=== PATIENT | female | born 1995 | race Caucasian/White ===

== ENCOUNTER 2021-03-28 17:01 | Inpatient (IN) | payer OTHER ==
[~2021-03-28] VITALS: Ht 167.6 cm; Wt 59.0 kg
[2021-03-28 17:20] VITALS: BP 107/71
[2021-03-28 19:00] LABS: BASO % 0.3 % (0.0-1.0); EOS # 0.1 10*3/uL (0.0-0.4); EOS % 0.8 % (1.0-4.0); HEMATOCRIT 40.7 % (37.0-47.0); LYMPH # 1.7 10*3/uL (1.3-4.4); LYMPH % 17.8 % (27.0-41.0); MEAN CELL VOLUME 97.1 fl (81.0-99.0); MEAN CORPUSCULAR HGB 31.3 pg (27.0-31.0); MEAN CORPUSCULAR HGB CONC 32.2 g/dl (33.0-37.0); MEAN PLATELET VOLUME 10.5 fl (9.6-12.3); MONO # 0.9 10*3/uL (0.1-1.0); NEUT # 6.8 10*3/uL (2.3-7.9); NEUT % 71.9 % (47.0-73.0); PLATELET COUNT AUTOMATED 188 10*3/uL (130-400); RED BLOOD COUNT 4.19 10*6/uL (4.10-5.10); RED CELL DISTRI WIDTH 13.2 % (0-14.5); WHITE BLOOD COUNT 9.5 10*3/uL (4.8-10.8)
[2021-03-28 19:17] LABS: ALBUMIN 3.5 gm/dl (3.1-4.5); ALKALINE PHOSPHATASE 65 U/L (45-117); BUN 7 mg/dl (7-24); CHLORIDE 109 mmol/L (98-107); CREATININE 0.82 mg/dL (0.55-1.02); POTASSIUM 3.4 mmol/L (3.5-5.1); SGOT/AST 9 IU/L (3-35); SGPT/ALT 14 U/L (12-78); SODIUM 141 mmol/L (136-145); TOTAL PROTEIN 6.8 gm/dL (6.4-8.2)
[2021-03-28 21:23] VITALS: BP 104/66
== END 2021-03-29 01:39 | disposition left against medical advice (07) | DRG 82 ==
LOC: ED 17:01 → EDHOLD 21:54 → 4E 03-29 00:40 → EDHOLD 03-29 01:37
PROVIDERS: Physician Assistant; ADMIT Family Medicine; ATTEND Family Medicine
DX: H00.034 Abscess of left upper eyelid (principal); L03.211 Cellulitis of face; F60.3 Borderline personality disorder; F41.9 Anxiety disorder, unspecified; F32.9 Major depressive disorder, single episode, unspecified; F17.211 Nicotine dependence, cigarettes, in remission; E87.6 Hypokalemia; F19.10 Other psychoactive substance abuse, uncomplicated; Z53.29 Procedure and treatment not carried out because of patient's decision for other reasons; E87.8 Other disorders of electrolyte and fluid balance, not elsewhere classified; Z71.6 Tobacco abuse counseling; Z71.51 Drug abuse counseling and surveillance of drug abuser; Z98.51 Tubal ligation status; Z82.5 Family history of asthma and other chronic lower respiratory diseases

== ENCOUNTER 2022-01-09 19:52 | Emergency (ER) | payer OTHER ==
[~2022-01-09] VITALS: Ht 172.7 cm; Wt 59.0 kg
== END 2022-01-10 00:07 | disposition home or self-care (01) ==
LOC: ED 19:52
DX: S61.210A Laceration without foreign body of right index finger without damage to nail, initial encounter (principal); Z98.51 Tubal ligation status; W45.8XXA Other foreign body or object entering through skin, initial encounter; Y93.89 Activity, other specified; Y92.89 Other specified places as the place of occurrence of the external cause; Y99.8 Other external cause status

== ENCOUNTER 2022-06-10 16:36 | Emergency (ER) | payer OTHER ==
[~2022-06-10] VITALS: Ht 167.6 cm; Wt 52.6 kg
== END 2022-06-10 19:59 | disposition home or self-care (01) ==
LOC: ED 16:36
DX: T78.2XXA Anaphylactic shock, unspecified, initial encounter (principal); T63.441A Toxic effect of venom of bees, accidental (unintentional), initial encounter; R06.89 Other abnormalities of breathing; F17.200 Nicotine dependence, unspecified, uncomplicated; Z98.51 Tubal ligation status; Y92.89 Other specified places as the place of occurrence of the external cause; X58.XXXA Exposure to other specified factors, initial encounter

== ENCOUNTER 2022-06-17 16:25 | Emergency (ER) | payer OTHER ==
[~2022-06-17] VITALS: Ht 167.6 cm; Wt 51.7 kg
[2022-06-17 17:12] LABS: HEMATOCRIT 37.9 % (37.0-47.0); MEAN CELL VOLUME 93.6 fl (81.0-99.0); MEAN CORPUSCULAR HGB 29.6 pg (27.0-31.0); MEAN CORPUSCULAR HGB CONC 31.7 g/dl (33.0-37.0); MEAN PLATELET VOLUME 10.2 fl (9.6-12.3); PLATELET COUNT AUTOMATED 192 10*3/uL (130-400); RED BLOOD COUNT 4.05 10*6/uL (4.10-5.10); RED CELL DISTRI WIDTH 12.7 % (0-14.5); WHITE BLOOD COUNT 3.3 10*3/uL (4.8-10.8)
[2022-06-17 17:15] LABS: MANUAL DIFF REFLEX YES
[2022-06-17 17:30] LABS: ALKALINE PHOSPHATASE 73 U/L (45-117); BUN 7 mg/dl (7-24); CHLORIDE 109 mmol/L (98-107); CREATININE 0.94 mg/dL (0.55-1.02); POTASSIUM 3.8 mmol/L (3.5-5.1); SGOT/AST 20 IU/L (3-35); SGPT/ALT 29 U/L (12-78); SODIUM 139 mmol/L (136-145); TOTAL PROTEIN 6.5 gm/dL (6.4-8.2)
[2022-06-17 17:38] LABS: ATYPICAL LYMPHS 10 % (0-0); BASOPHILS 2 % (0-1); PLATELET SUFFICIENCY NORMAL (NORMAL); TOTAL CELLS COUNTED 100 #CELLS
[2022-06-17] MEDS ORDERED: CEPHALEXIN500 M1 PO (20:50)
[2022-06-17] MEDS ORDERED: SEPTDS PO (20:50)
== END 2022-06-17 21:35 | disposition home or self-care (01) ==
LOC: ED 16:25
PROVIDERS: Physician Assistant
DX: L03.012 Cellulitis of left finger (principal); Z87.891 Personal history of nicotine dependence

== ENCOUNTER 2022-10-23 07:19 | Emergency (ER) | payer OTHER ==
[~2022-10-23] VITALS: Ht 167.6 cm; Wt 52.2 kg
[~2022-10-23 07:19] MED LIST: CEPHALEXIN500 M1 PO; SEPTDS PO
[2022-10-23] MEDS ORDERED: Motrin,Rufen800 MG PO (08:15)
[2022-10-23] MEDS ORDERED: CLEOCIN HCL150 MG PO (08:15)
== END 2022-10-23 08:34 | disposition home or self-care (01) ==
LOC: ED 07:19
DX: K08.89 Other specified disorders of teeth and supporting structures (principal); Z98.51 Tubal ligation status; Z87.891 Personal history of nicotine dependence

== ENCOUNTER 2023-05-10 12:14 | Emergency (ER) | payer OTHER ==
[~2023-05-10] VITALS: Ht 167.6 cm; Wt 52.2 kg
[~2023-05-10 12:14] MED LIST changes: +CLEOCIN HCL150 MG PO; +Motrin,Rufen800 MG PO
[2023-05-10] MEDS ORDERED: BUPRENORPHINE-1 EAC1 SL (12:25)
[2023-05-10] MEDS ORDERED: CLONIDINE HCL0.2 MG PO (12:26)
[2023-05-10] MEDS ORDERED: PAROXETINE HCL20 MG PO (12:26)
[2023-05-10] MEDS ORDERED: METHOCARBAMOL500 M1 PO (12:26)
[2023-05-10] MEDS ORDERED: GABAPENTIN600 MG PO (12:26)
[2023-05-10] MEDS ORDERED: Motrin,Rufen400 MG PO (12:37)
[2023-05-10] MEDS ORDERED: CLINDAMYCIN HC300 MG PO (12:37)
== END 2023-05-10 12:46 | disposition home or self-care (01) ==
LOC: ED 12:14
DX: K04.7 Periapical abscess without sinus (principal); Z98.51 Tubal ligation status; F17.200 Nicotine dependence, unspecified, uncomplicated; F19.10 Other psychoactive substance abuse, uncomplicated

== ENCOUNTER 2024-01-21 11:33 | Emergency (ER) | payer OTHER ==
[~2024-01-21] VITALS: Ht 167.6 cm; Wt 49.9 kg
[~2024-01-21 11:33] MED LIST changes: +BUPRENORPHINE-1 EAC1 SL; +CLINDAMYCIN HC300 MG PO; +CLONIDINE HCL0.2 MG PO; +GABAPENTIN600 MG PO; +METHOCARBAMOL500 M1 PO; +Motrin,Rufen400 MG PO; +PAROXETINE HCL20 MG PO
[2024-01-21] MEDS ORDERED: Ondansetron Hydrochloride 4 MG/2 ML VIAL IV ONE (13:00)
[2024-01-21] MEDS ORDERED: SODIUM CHLORIDE 0.9% 1,000 ML IV ONE (13:00)
[2024-01-21 13:20] LABS: HEMATOCRIT 33.9 % (37.0-47.0); MEAN CELL VOLUME 89.7 fl (81.0-99.0); MEAN CORPUSCULAR HGB 27.8 pg (27.0-31.0); MEAN PLATELET VOLUME 9.8 fl (9.6-12.3); PLATELET COUNT AUTOMATED 173 10*3/uL (130-400); RED BLOOD COUNT 3.78 10*6/uL (4.10-5.10); RED CELL DISTRI WIDTH 13.1 % (0-14.5); WHITE BLOOD COUNT 13.6 10*3/uL (4.8-10.8)
[2024-01-21 13:23] LABS: MANUAL DIFF REFLEX YES
[2024-01-21 13:40] LABS: PLATELET SUFFICIENCY NORMAL (NORMAL); TOTAL CELLS COUNTED 100 #CELLS
[2024-01-21 13:44] LABS: ALKALINE PHOSPHATASE 79 U/L (46-116); BETA-HCG, QUANT < 3.0 mIU/mL (3-10); BUN 6 mg/dl (9-23); CHLORIDE 106 mmol/L (98-107); LIPASE 31 U/L (12-53); POTASSIUM 3.5 mmol/L (3.4-5.1); SGPT/ALT 91 U/L (5-49)
[2024-01-21 15:20] LABS: BILIRUBIN Negative (Negative); BLOOD Negative (Negative); CLARITY Cloudy (Clear); COLOR Dark Yellow (Yellow); GLUCOSE Negative (Negative); KETONE 2+ (Negative); LEUKO ESTERASE 1+ (Negative); NITRITE Positive (Negative); SPECIFIC GRAVITY >= 1.030 (1.001-1.030)
[2024-01-21 15:28] LABS: URINE AMPHETAMINES Positive (1000ng/ml); URINE BARBITURATES Negative (200ng/ml); URINE BENZODIAZEPINES Negative (200ng/ml); URINE CANNABINOIDS (THC) Negative (50ng/ml); URINE COCAINE Negative (300ng/ml); URINE METHADONE Negative (300ng/ml); URINE OPIATES Negative (300ng/ml); URINE PHENCYCLIDINE Negative (25ng/ml)
[2024-01-21 15:51] LABS: BACTERIA 4+; WBC 16-20 wbc/hpf (0-5)
[2024-01-21] MEDS ORDERED: ONDANSETRON4 MG SL (15:57)
[2024-01-21] MEDS ORDERED: SEPTDS PO (15:57)
== END 2024-01-21 16:07 | disposition home or self-care (01) ==
LOC: ED 11:33
PROVIDERS: Physician Assistant Medical
DX: N39.0 Urinary tract infection, site not specified (principal); R11.2 Nausea with vomiting, unspecified; Z98.51 Tubal ligation status; F19.10 Other psychoactive substance abuse, uncomplicated; F17.200 Nicotine dependence, unspecified, uncomplicated

== ENCOUNTER 2024-05-02 18:03 | Emergency (ER) | payer OTHER ==
[~2024-05-02 18:03] MED LIST changes: +ONDANSETRON4 MG SL
[2024-05-02] MEDS ORDERED: AMOX-CLAV 875-1 EACH PO (18:26)
[2024-05-02] MEDS ORDERED: MELOXICAM15 MG PO (18:26)
== END 2024-05-02 18:25 | disposition home or self-care (01) ==
LOC: ED 18:03
DX: K02.9 Dental caries, unspecified (principal); K04.7 Periapical abscess without sinus; F19.10 Other psychoactive substance abuse, uncomplicated; F17.200 Nicotine dependence, unspecified, uncomplicated; Z98.51 Tubal ligation status